=== PATIENT | male | born 1960 | race Caucasian/White ===

== ENCOUNTER 2021-07-05 11:08 | Outpatient (CLI) | payer OTHER, SELFPAY ==
[2021-07-05 12:46] LABS: Influenza A QL RT-PCR Negative (Negative); Influenza B QL RT-PCR Negative (Negative); SARS-CoV-2 RNA PCR Positive (Negative)
== END 2021-07-05 11:09 | disposition home or self-care (01) ==
LOC: CHSLAB 11:14
PROVIDERS: PCP Internal Medicine; Visit Provider Internal Medicine
DX: U07.1 COVID-19 (principal)
CPT/HCPCS: 87502; C9803; U0003; U0005

== ENCOUNTER 2021-08-21 09:13 | Outpatient (CLI) | payer OTHER, SELFPAY ==
--- NOTE | ~2021-08-21 | XR_ITS ---
XR chest 2V DATE: 08/21/2021 09:44 INDICATION: Cough TECHNIQUE: PA and lateral views COMPARISON: None FINDINGS: Normal heart size. No hilar or mediastinal enlargement. No pulmonary infiltrate or consolidation, pulmonary vascular congestion or pleural effusion or pneumo thorax. IMPRESSION: No active cardiopulmonary disease Reviewed, dictated and finalized at location A. [employer]
[2021-08-21 09:31] LABS: Add Urine Microscopic? NO; Appearance Urine Clear (Clear); Basophils Absolute Auto 0.13 K/mm3 (0.00-0.10); Basophils Percent Auto 1.3 % (0.0-1.0); Bilirubin Urine Negative (Negative); Blood Urine Negative (Negative); Color Urine Light Yellow (Yellow); Eosinophils Percent Auto 6.1 % (1.0-6.0); Glucose Urine UA Negative (Negative); Hematocrit 46.1 % (40.0-54.0); Hemoglobin 15.6 g/dL (14.0-18.0); Immature Granulocyte Absolute 0.04 K/mm3 (0.00-0.00); Immature Granulocyte Percent A 0.4 % (0.0-0.0); Ketones Urine Negative (Negative); Leukocyte Esterase Ur Negative (Negative); Lymphocytes Absolute Auto 2.23 K/mm3 (1.10-4.50); Lymphocytes Percent Auto 22.5 % (18.0-42.0); Mean Corpuscular HGB Conc 33.8 g/dL (32.0-36.0); Mean Corpuscular Volume 97.5 fL (78.0-102.0); Mean Platelet Volume 9.7 fl (8.7-11.0); Monocytes Absolute Auto 0.91 K/mm3 (0.10-0.90); Monocytes Percent Auto 9.2 % (2.0-11.0); Neutrophils Percent Auto 60.5 % (50.0-70.0); Nitrate Urine Negative (Negative); Platelet Count Result 333 K/mm3 (150-420); Protein Urine Negative (Negative); Red Blood Count 4.73 M/mm3 (4.70-6.10); Red Cell Distribution Width 13.1 % (11.6-14.4); Specific Grav Ur 1.025 (1.010-1.020); Urobilinogen Urine 0.2 mg/dL (0.2-1.0); White Blood Count 9.9 K/mm3 (4.8-10.8)
[2021-08-21 09:45] LABS: Amphetamine Screen Urine Negative (Negative); Barbiturate Screen Urine Negative (Negative); Benzodiazepines Screen Urine Negative (Negative); Cannabinoid Screen Urine Negative (Negative); Cocaine Screen Urine Negative (Negative); Methadone Screen Urine Negative (Negative); Opiate Screen Urine Negative (Negative); Phencyclidine Screen Urine Negative (Negative)
[2021-08-21 11:05] LABS: Alanine Aminotransferase 55 U/L (16-63); Albumin Level 4.2 g/dL (3.4-5.0); Alkaline Phosphatase 86 U/L (46-116); Anion Gap 8 mmol/L (8-16); Aspartate Amino Transferase 28 U/L (15-37); Bilirubin,Total 0.5 mg/dL (0.00-1.00); Blood Urea Nitrogen 20 mg/dL (7-18); Calcium 9.3 mg/dL (8.5-10.1); Carbon Dioxide 30 mmol/L (21-32); Chloride 101 mmol/L (98-108); Estimated Glomerular Filt Rate > 60; Glucose 100 mg/dL (70-99); Osmolality Calculated 290 mOsm/kg (285-295); Potassium 4.8 mmol/L (3.5-5.1); Sodium 139 mmol/L (136-145); Thyroid Stimulating Hormone 9.94 uIU/mL (0.36-3.74); Total Protein 7.5 g/dL (6.4-8.2)
[2021-08-21 11:06] LABS: Ethanol < 3 mg/dL (0-6)
== END 2021-08-21 09:14 | disposition home or self-care (01) ==
LOC: CHSLAB 09:16
PROVIDERS: PCP Internal Medicine; Visit Provider Internal Medicine
DX: Z02.1 Encounter for pre-employment examination (principal); R05.9 Cough, unspecified; E03.9 Hypothyroidism, unspecified
CPT/HCPCS: 36415; 71046; 80053; 80307; 81003; 84443; 85025

== ENCOUNTER 2023-01-02 13:37 | Outpatient (CLI) | payer OTHER, SELFPAY ==
--- NOTE | ~2023-01-02 | XR_ITS ---
EXAMINATION: XR chest 2V 01/02/2023 14:09 INDICATION: COPD. Smoker. PROCEDURE: 2 view chest COMPARISON: 08/21/2021 FINDINGS: The lungs are clear. The cardiomediastinal silhouette is within normal limits. There are no pleural effusions. There is no pneumothorax suspected. IMPRESSION: 1: NO ACUTE CARDIOPULMONARY DISEASE. Reviewed, dictated and finalized at location []
--- NOTE | ~2023-01-02 | XR_ITS ---
Cervical Spine: AP, lateral, open-mouth views Clinical History: Pain Findings: There is mild reversal of the normal cervical lordosis. No fracture or subluxation evident. There is advanced degenerative disc narrowing at C3-C4, C4-C5, C5-6, and C6-C7. There is mild facet arthropathy throughout cervical spine. Pre-vertebral soft tissues are unremarkable. Impression: Moderate to advanced degenerative spondylosis, as detailed above, with mild reversal of the normal ce rvical lordosis. Reviewed, dictated and finalized at location M. Impression: Moderate to advanced degenerative spondylosis, as detailed above, with mild rev ersal of the normal cervical lordosis.
[2023-01-02 13:53] LABS: Basophils Absolute Auto 0.11 K/mm3 (0.00-0.10); Basophils Percent Auto 1.1 % (0.0-1.0); Eosinophils Absolute Auto 0.55 K/mm3 (0.02-0.50); Eosinophils Percent Auto 5.7 % (1.0-6.0); Hematocrit 43.1 % (40.0-54.0); Hemoglobin 14.2 g/dL (14.0-18.0); Immature Granulocyte Absolute 0.03 K/mm3 (0.00-0.00); Immature Granulocyte Percent A 0.3 % (0.0-0.0); Lymphocytes Absolute Auto 2.78 K/mm3 (1.10-4.50); Mean Corpuscular HGB Conc 32.9 g/dL (32.0-36.0); Mean Corpuscular Hemoglobin 31.8 pg (27.0-31.0); Mean Corpuscular Volume 96.6 fL (78.0-102.0); Mean Platelet Volume 10.1 fl (8.7-11.0); Monocytes Absolute Auto 0.85 K/mm3 (0.10-0.90); Monocytes Percent Auto 8.9 % (2.0-11.0); Neutrophils Absolute Auto 5.3 K/mm3 (1.7-7.2); Platelet Count Result 315 K/mm3 (150-420); Red Blood Count 4.46 M/mm3 (4.70-6.10); Red Cell Distribution Width 13.1 % (11.6-14.4); White Blood Count 9.6 K/mm3 (4.8-10.8)
[2023-01-02 13:58] LABS: Appearance Urine Clear (Clear); Bilirubin Urine Negative (Negative); Blood Urine Negative (Negative); Color Urine Yellow (Yellow); Glucose Urine UA Negative (Negative); Ketones Urine Negative (Negative); Leukocyte Esterase Ur Negative (Negative); Nitrate Urine Negative (Negative); Protein Urine Negative (Negative)
[2023-01-02 14:05] LABS: Add Urine Microscopic? NO
[2023-01-02 14:48] LABS: Alanine Aminotransferase 43 U/L (16-63); Albumin Level 4.1 g/dL (3.4-5.0); Alkaline Phosphatase 90 U/L (46-116); Anion Gap 9 mmol/L (8-16); Aspartate Amino Transferase 30 U/L (15-37); Bilirubin,Total 0.9 mg/dL (0.00-1.00); Blood Urea Nitrogen 18 mg/dL (7-18); Calcium 9.2 mg/dL (8.5-10.1); Carbon Dioxide 29 mmol/L (21-32); Chloride 104 mmol/L (98-108); Estimated Glomerular Filt Rate > 60; Glucose 103 mg/dL (70-99); Osmolality Calculated 295 mOsm/kg (285-295); Potassium 4.3 mmol/L (3.5-5.1); Prostate Specific Antigen 3.8 ng/mL (< OR = 4.0); Sodium 142 mmol/L (136-145); Total Protein 7.1 g/dL (6.4-8.2)
[2023-01-02 14:55] LABS: CRP < 0.5 mg/dL (0.0-0.9)
[2023-01-03 09:04] LABS: Thyroid Stimulating Hormone 2.63 uIU/mL (0.36-3.74)
== END 2023-01-02 13:38 | disposition home or self-care (01) ==
LOC: CHSLAB 13:40
PROVIDERS: PCP Internal Medicine; Visit Provider Internal Medicine
DX: M54.2 Cervicalgia (principal); J44.9 Chronic obstructive pulmonary disease, unspecified; E03.9 Hypothyroidism, unspecified; M43.02 Spondylolysis, cervical region; M53.82 Other specified dorsopathies, cervical region
CPT/HCPCS: 36415; 71046; 72040; 80053; 81003; 84153; 84443; 85025; 86140; G0103